=== PATIENT | female | born 1995 | race Caucasian/White ===

== ENCOUNTER 2016-09-20 12:10 | Emergency (ER) | payer MEDICAID, OTHER ==
[~2016-09-20] VITALS: Ht 160 cm; Wt 80.0 kg
[~2016-09-20 12:10] MED LIST: BUSP5 PO; QUET100 PO; SERT50 PO; VIST50CA PO
[2016-09-20 12:13] VITALS: BP 122/70; PULSE 80; RESP 16; TEMP 98; O2SAT 95
--- NOTE | 2016-09-20 12:34 | PD ---
HPI Chief Complaint: Cold / Flu Symptoms Time Seen by Provider: 12:30 Travel History International Travel<30 days: No Contact w/Intl Traveler<30days: No Traveled to known affect area: No History of Present Illness HPI Patient comes in complaining of cold like symptoms ongoing for approximately 6 weeks. Patient states they seem to get a little bit better and the weather changes causing them to get worse again. Patient complaining of sinus congestion, cough, and sore throat. Patient tried [id number] DayQuil and NyQuil full relief of her symptoms. Patient denies any fevers, nausea, vomiting , diarrhea, abdominal pain, shortness of breath, or . PFSH Past Medical History ADHD: No Anxiety: Yes Depression: Yes Developmental Delay: No Diabetes: No (See EMR) Diminished Hearing: No Endocrine: No Genitourinary: No Headaches: Yes (per patient she stated she has frequent headaches) Immune Disorder: No Musculoskeletal: No Neurologic: No Psychiatric: Yes (See EMR) Reproductive: No Respiratory: No Immunizations Current: Yes Migraines: Yes Thyroid Disease: No Ulcer: No ?: Unknown Menopausal: No : 2 Para: 2 Tubal Ligation: No Past Surgical History Appendectomy: No Cholecystectomy: No Hysterectomy: No Other Surgery: No Social History Alcohol Use: No Tobacco Use: Yes Substance Use: Yes (marijuana (occasional)) Allergies-Medications (Allergen,Severity, Reaction): Coded Allergies: No Known Allergies (Verified , 09/20/16) Reported Meds & Prescriptions Reported Meds & Active Scripts Active Flonase Allergy Relief Nasal Laura (Fluticasone Nasal Laura) 50 Mcg/Act Laura 2 Laura EACH NARE DAILY Review of Systems Except as stated in HPI: all other systems reviewed are Neg Physical Exam Narrative GENERAL: Well-developed, overly nourished, in no acute distress, and non-ill appearing. SKIN: Warm and dry. HEAD: Atraumatic. Normocephalic. EYES: Pupils equal and round. EOMI. No scleral icterus. No injection or drainage. ENT: No nasal bleeding or discharge. Mucous membranes pink and moist. Tympanic membranes pearly smith bilaterally. Posterior pharynx nonerythematous without exudate. Uvula is midline. Patient reports minimal tenderness to bilateral maxillary sinuses. NECK: Trachea midline. No cervical lymphadenopathy. Supple. No nuclear rigidity. CARDIOVASCULAR: Regular rate and rhythm. No murmur appreciated. RESPIRATORY: No accessory muscle use. No respiratory distress. Clear to auscultation. Breath sounds equal bilaterally. Patient speaking in full sentences. No coughing on exam. MUSCULOSKELETAL: No obvious deformities. No clubbing. No cyanosis. No edema. Full range of motion. NEUROLOGICAL: Awake and alert. No obvious cranial nerve deficits. Motor grossly within normal limits. Normal speech. PSYCHIATRIC: Appropriate mood and affect; insight and judgment normal. Data Data Last Documented VS Vital Signs Date Time Temp Pulse Resp B/P Pulse Ox O2 Delivery O2 Flow Rate FiO2 09/20/16 12:45 Room Air 09/20/16 12:13 98.0 80 16 122/70 95 MDM Medical Decision Making Medical Screen Exam Complete: Yes Emergency Medical Condition: Yes Differential Diagnosis Upper respiratory infection, pneumonia, bronchitis, sinusitis, other Narrative Course Patient looks great, non-ill appearing. The patient is tolerating fluids and is well hydrated. Appears allergic sinusitis. No clinical evidence by history or evaluation to suspect infection, meningitis and/or sepsis. There was no evidence to suggest deep abscess or cavernous sinus involvement. I discussed with the patient, diagnosis, plan of care, medications and to follow up with the patients primary physician. The patient was instructed to return if the worsens in anyway, especially if not tolerating fluids, increased sinus pain or swelling, worsening headache, persistent fever, difficulty swallowing or breathing, or as needed. The patient agreed with plan. Patient in no obvious distress upon re-evaluation. Patient was asked if they wanted to speak to my attending, which the patient did not wish to do at this time. Any questions/concerns in reference to patient diagnosis/condition discussed and clarified prior to patient's discharge. Reinforced sheer importance of close follow up with patient's primary physician or primary care clinic. Instructed patient to return to ED immediately, if symptoms return/ worsen. Pt showed understanding of above instructions. Further instructions and recommendations were detailed in discharge paperwork. Pt ambulated without difficulty out of ED at discharge. Diagnosis Primary Impression: Sinusitis Qualified Code: J32.0 - Maxillary sinusitis, unspecified chronicity Referrals: [facility] Patient Instructions: General Instructions, Sinusitis (ED) Additional Instructions: Follow-up with your primary care physician in 3-5 days for reevaluation. Take all medication as prescribed. Return to the emergency department if symptoms get worse. Med/Other Pt SpecificInfo: Prescription(s) given Scripts Fluticasone Nasal Laura (Flonase Allergy Relief Nasal Laura)50 Mcg/Act Spray2 Laura EACH NARE DAILY #1 BOTTLE Ref 0 Prov:Komal Jones MD 09/20/16 Disposition: 01 DISCHARGE HOME Condition: Stable Mohamud Chawla Sep 20, 2016 12:34
[2016-09-20] MEDS ORDERED: FLUT1SPR5 EACH NARE (12:35)
== END 2016-09-20 13:05 | disposition home or self-care (01) ==
LOC: NEPB 12:10
DX: J32.9 Chronic sinusitis, unspecified (principal); Z72.0 Tobacco use
CPT/HCPCS: 99283

== ENCOUNTER 2016-10-07 15:22 | Emergency (ER) | payer OTHER ==
[~2016-10-07] VITALS: Ht 160 cm; Wt 80.0 kg
[~2016-10-07 15:22] MED LIST changes: -BUSP5 PO; +FLUT1SPR5 EACH NARE; -QUET100 PO; -SERT50 PO; -VIST50CA PO
[2016-10-07 15:24] VITALS: BP 124/92; PULSE 84; RESP 18; TEMP 98.6; O2SAT 97
--- NOTE | 2016-10-07 15:43 | PD ---
HPI Chief Complaint: Psychiatric Symptoms Time Seen by Provider: 15:43 Travel History International Travel<30 days: No Contact w/Intl Traveler<30days: No Traveled to known affect area: No History of Present Illness HPI 21 year-old female history of bipolar disorder and mother states schizoaffective disorder, presents to emergency department voluntarily for psychiatric evaluation. Patient has not been taking her antipsychotics. She states she does not like how they make her feel. Mom states over the last 2 weeks, patient has been having this "seizure-like" activity. She states that she talks her down and she stops doing it. Here in the patient's room, patient is on the floor yelling, blinking her eyes, and flailing her arms. I explained to the mother that this does not look like a real seizure. The patient stops mid demonstration, stares at me right in my face, and says "I'm not fucking faking this. THIS IS REAL." Then goes back to her shaking. She tells me that it feels as though somebody takes over her body PFSH Past Medical History ADHD: No Anxiety: Yes Depression: Yes Developmental Delay: No Diabetes: No (See EMR) Diminished Hearing: No Endocrine: No Genitourinary: No Headaches: Yes Immune Disorder: No Musculoskeletal: No Neurologic: No Psychiatric: Yes (See EMR) Reproductive: No Respiratory: No Immunizations Current: Yes Migraines: Yes Thyroid Disease: No Ulcer: No ?: Unknown Menopausal: No : 2 Para: 2 Tubal Ligation: No Past Surgical History Appendectomy: No Cholecystectomy: No Hysterectomy: No Other Surgery: No Social History Alcohol Use: No Tobacco Use: Yes (1/2 PPD) Substance Use: Yes (marijuana (occasional)) Allergies-Medications (Allergen,Severity, Reaction): Coded Allergies: No Known Allergies (Verified , 10/07/16) Reported Meds & Prescriptions Reported Meds & Active Scripts Active Reported Ibuprofen 600 Mg Tab 600 Mg PO TID Review of Systems Except as stated in HPI: all other systems reviewed are Neg Physical Exam Narrative GENERAL: Well-nourished female patient, in no acute distress SKIN: Warm and dry. HEAD: Atraumatic. Normocephalic. EYES: Pupils equal and round. No scleral icterus. No injection or drainage. ENT: No nasal bleeding or discharge. Mucous membranes pink and moist. NECK: Trachea midline. No JVD. CARDIOVASCULAR: Regular rate and rhythm. No murmur appreciated. RESPIRATORY: No accessory muscle use. Clear to auscultation. Breath sounds equal bilaterally. GASTROINTESTINAL: Abdomen soft, non-tender, nondistended. Hepatic and splenic margins not palpable. MUSCULOSKELETAL: No obvious deformities. No clubbing. No cyanosis. No edema. NEUROLOGICAL: Awake and alert. No obvious cranial nerve deficits. Motor grossly within normal limits. Normal speech. Data Data Last Documented VS Vital Signs Date Time Temp Pulse Resp B/P Pulse Ox O2 Delivery O2 Flow Rate FiO2 10/07/16 19:00 78 18 129/87 99 Room Air 10/07/16 15:24 98.6 Orders Complete Blood Count With Diff (10/07/16 15:43) Basic Metabolic Panel (Bmp) (10/07/16 15:43) Drug Screen, Random Urine (10/07/16 15:43) Ed Urine Pregnancytest Poc (10/07/16 15:43) Alcohol (Ethanol) (10/07/16 15:43) Psych Screen (10/07/16 15:43) Labs Laboratory Tests Test 10/07/16 10/07/16 15:55 17:20 White Blood Count 11.5 TH/MM3 Red Blood Count 4.75 MIL/MM3 Hemoglobin 14.7 GM/DL Hematocrit 43.7 % Mean Corpuscular Volume 92.0 FL Mean Corpuscular Hemoglobin 30.9 PG Mean Corpuscular Hemoglobin 33.5 % Concent Red Cell Distribution Width 13.0 % Platelet Count 330 TH/MM3 Mean Platelet Volume 8.4 FL Neutrophils (%) (Auto) 68.7 % Lymphocytes (%) (Auto) 25.1 % Monocytes (%) (Auto) 5.5 % Eosinophils (%) (Auto) 0.2 % Basophils (%) (Auto) 0.5 % Neutrophils # (Auto) 7.9 TH/MM3 Lymphocytes # (Auto) 2.9 TH/MM3 Monocytes # (Auto) 0.6 TH/MM3 Eosinophils # (Auto) 0.0 TH/MM3 Basophils # (Auto) 0.1 TH/MM3 CBC Comment DIFF FINAL Differential Comment Sodium Level 141 MEQ/L Potassium Level 3.6 MEQ/L Chloride Level 107 MEQ/L Carbon Dioxide Level 23.7 MEQ/L Anion Gap 10 MEQ/L Blood Urea Nitrogen 9 MG/DL Creatinine 0.74 MG/DL Estimat Glomerular Filtration 99 ML/MIN Rate Random Glucose 93 MG/DL Calcium Level 9.2 MG/DL Ethyl Alcohol Level LESS THAN 3 MG/DL Urine Opiates Screen NEG Urine Barbiturates Screen NEG Urine Amphetamines Screen NEG Urine Benzodiazepines Screen NEG Urine Cocaine Screen NEG Urine Cannabinoids Screen POS MDM Medical Decision Making Medical Screen Exam Complete: Yes Emergency Medical Condition: Yes Medical Record Reviewed: Yes Differential Diagnosis Pseudoseizure versus seizure disorder versus electrolyte abnormality versus mood disorder versus conversion disorder Narrative Course 21-year-old female presents to emergency department voluntarily for psychiatric evaluation. Patient appears without distress. She is having pseudoseizure- like behavior that she is able to absolutely control. There has been no tongue biting no loss of bowel or bladder. She stops mid demonstration to yell at me. After she calms down, she is cooperative. I am able to do assessment. She is without distress. Lab work is without acute abnormality. She is medically cleared to undergo psychiatric screening for further evaluation and disposition. Mental health screening discussed with the patient. Psychiatric screen ordered. Diagnosis Primary Impression: Bipolar 1 disorder, manic, moderate Condition: Stable Alea Cintron Oct 07, 2016 15:43
[2016-10-07 16:30] LABS: AUTOMATED NEUTROPHIL # 7.9 TH/MM3 (1.8-7.7); BASOPHIL # 0.1 TH/MM3 (0-0.2); BASOPHIL % 0.5 % (0.0-2.0); EOSINOPHIL % 0.2 % (0.0-4.0); HEMATOCRIT 43.7 % (35.0-46.0); HEMO FLAGS DIFF FINAL; LYMPH % 25.1 % (9.0-44.0); LYMPHOCYTE # 2.9 TH/MM3 (1.0-4.8); MEAN CORPUSCULAR HEMOGLOBIN 30.9 PG (27.0-34.0); MEAN CORPUSCULAR HGB CONC 33.5 % (32.0-36.0); MONO % 5.5 % (0.0-8.0); NEUT % 68.7 % (16.0-70.0); PLATELET COUNT 330 TH/MM3 (150-450); RED BLOOD COUNT 4.75 MIL/MM3 (4.00-5.30); WHITE BLOOD COUNT 11.5 TH/MM3 (4.0-11.0)
[2016-10-07 16:57] LABS: ANION GAP 10 MEQ/L (5-15); BICARBONATE 23.7 MEQ/L (21.0-32.0); BLOOD UREA NITROGEN 9 MG/DL (7-18); CHLORIDE 107 MEQ/L (98-107); GLOMERULAR FILTRATION RATE 99 ML/MIN (>89); POTASSIUM 3.6 MEQ/L (3.5-5.1); SODIUM (NA) 141 MEQ/L (136-145)
[2016-10-07] MEDS ORDERED: IBUP-232 PO (17:20)
[2016-10-07 17:57] LABS: AMPHETAMINE, URINE NEG (NEG); BARBITURATES, URINE NEG (NEG); COCAINE, URINE NEG (NEG)
[2016-10-07 19:00] VITALS: BP 129/87; PULSE 78; RESP 18; O2SAT 99
[2016-10-07] MEDS ORDERED: QUET1TAB8 PO (21:35)
[2016-10-07] MEDS ORDERED: BUSP5TAB PO (21:35)
[2016-10-07] MEDS ORDERED: SERT-132 PO (21:35)
[2016-10-07 22:14] VITALS: BP 155/99; PULSE 95; RESP 18; TEMP 97.4; O2SAT 98
[2016-10-08 02:11] VITALS: BP 112/70; PULSE 88; RESP 18; O2SAT 98
[2016-10-08 06:08] VITALS: BP 106/67; PULSE 104; RESP 18; TEMP 97.6; O2SAT 99
--- NOTE | 2016-10-08 08:43 | MB ---
cc: BRYAN LARSEN MD DATE OF CONSULTATION: 10/08/2016 PHYSICIAN REQUESTING CONSULTATION Emergency Department. REASON FOR CONSULTATION Psychiatric evaluation. HISTORY OF PRESENT ILLNESS Ms. Wilson is a 21-year-old female with a reported history of schizophrenia who presented voluntarily to the emergency department for a psychiatric evaluation. She apparently displayed some shaking spell activity but the ED provider documented that she stopped mid spell to tell the provider that she was not faking the spell and then resumed shaking. Reviewing the electronic medical record, I see that her most recent psychiatric contact within our system was a brief inpatient psychiatric admission under Dr. Escobar. The patient seen and examined. Chart reviewed. Case discussed with nurse in the J pod. There has been no evidence of any suicidal or homicidal behavior in the J pod. On my examination today, the patient is calm and pleasant. She denies any suicidal or homicidal ideation. She does admit that she deals with depression and anger issues. She says "I have a lot of resentment and I don't want to feel this way any more." She endorses some difficulties with sleep and appetite. She denies any audiovisual hallucinations presently and I can elicit no delusional beliefs including but not limited to paranoia, ideas of reference, thought insertion or withdrawal or grandiosity. She wants to live for her to children. The remainder of the psychiatric ROS is negative. The patient is requesting discharge from the psychiatric emergency room as she plans to go immediately to [facility] to pursue outpatient psychiatric services there. PAST PSYCHIATRIC HISTORY The patient reports prior diagnosis of schizophrenia. She says that she follows at [facility] but has not seen them in sometime. Her most recent psychiatric admission was under Dr. Escobar. She reports that she made a suicide attempt by overdose about 8 months ago and also has a history of non suicidal self-injurious behavior, namely cutting but this is not active. FAMILY HISTORY The patient reports an extensive family history of mental illness with numerous diagnoses. Her paternal grandfather completed suicide. Family psychiatric history is otherwise negative. CHEMICAL DEPENDENCY HISTORY The patient reports that she smokes cannabis daily and feels that it helps with her psychiatric symptoms. She denies any other substance use. SOCIAL HISTORY The patient reports that she lives with her mother. She has two children who were staying with their father. She has a tenth grade education and is thinking about trying to apply for disability. She denies any or legal history. Denies any access to guns or firearms. PAST MEDICAL HISTORY The patient denies. REVIEW OF SYSTEMS No reported headache, vision or hearing changes, chest pain, shortness of breath, bladder issues. The patient does complain of some nausea. PHYSICAL EXAMINATION Vital signs: Temperature is 97.6, pulse 104, respirations 18, blood pressure 106/67, pulse oximetry 99% on room air. A physical examination was completed in the emergency room by the ER staff and the patient was medically cleared. On my examination today, the patient appears to be in no acute physical distress. No abnormal motor movements noted. LABS REVIEWED CBC is significant for white blood cell count of 11.5. BMP is unremarkable. Toxicology is positive for cannabinoids and alcohol level was undetectable. MENTAL STATUS EXAMINATION The patient is in hospital gown. She is well-groomed and clearly attending to her basic needs. She is awake and alert and oriented x3. No motoric abnormalities noted. The patient does have a stammer but otherwise speech is within normal limits for rate, tone and volume. Language and fund of knowledge seem average for age. Mood is somewhat depressed but affect remains fairly full and reactive. Thought process linear. No loosening of associations. No evident delusions. Denies audiovisual hallucinations. Denies suicidal or homicidal ideation. Insight and judgment are fair. ASSESSMENT/PLAN 1. Adjustment disorder, unspecified, F43.20. 2. Reported history of schizophrenia, presently stable. This is a 21-year-old female with psychiatric history as detailed above who presented voluntarily for psychiatric evaluation. This morning for me the patient does describe some issues with mood and anger but denies any suicidal or homicidal ideation. She says that she wants to live for her children. She is attending to her basic needs. The patient does not meet Daniel Act criteria after weighing the relevant factors. I have offered her voluntary psychiatric hospitalization for management of her symptoms but she has declined preferring outpatient psychiatric follow up. Given I have no basis to retain the patient involuntarily at this time I will recommend her discharge from the psychiatric emergency room with plans to follow up at [facility] as she has stated. I have counseled the patient regarding warning signs for need to return to the psychiatric emergency room as part of a general safety plan. The patient is otherwise psychiatrically clear for discharge from the ED. Thank you very much for this consultation. Bryan Larsen DC/ALFREDO /8:13 AM /8:27 AM OSVALDO
[2016-10-08 10:07] VITALS: BP 106/67; PULSE 104; RESP 18; O2SAT 99
== END 2016-10-08 12:56 | disposition home or self-care (01) ==
LOC: NEPJ 15:22
DX: F31.9 Bipolar disorder, unspecified (principal); F43.20 Adjustment disorder, unspecified; F20.9 Schizophrenia, unspecified; F17.210 Nicotine dependence, cigarettes, uncomplicated; F12.90 Cannabis use, unspecified, uncomplicated
CPT/HCPCS: 80048; 80307; 80320; 84703; 85025; 99283

== ENCOUNTER 2016-10-22 14:37 | Emergency (ER) | payer SELFPAY ==
[~2016-10-22] VITALS: Ht 160 cm; Wt 81.8 kg
[~2016-10-22 14:37] MED LIST changes: +BUSP5TAB PO; -FLUT1SPR5 EACH NARE; +IBUP-232 PO; +QUET1TAB8 PO; +SERT-132 PO
[2016-10-22 14:40] VITALS: BP 149/76; PULSE 92; RESP 12; TEMP 98.4; O2SAT 98
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
[2016-10-22 16:02] LABS: BACTERIA, URINE MOD /hpf; BLOOD, URINE MOD (NEG); COMMENT (UR) CULTURE INDICATED; CULTURE IF INDICATED CULTURE INDICATED; GLUCOSE,URINE NEG (NEG); KETONE, URINE NEG (NEG); MUCUS URINE MANY /lpf (OCC); NITRITE,URINE NEG (NEG); SQUAMOUS EPITHELIAL CELL URINE 122 /hpf (0-5); URINE COLOR YELLOW (YELLW/STRAW)
[2016-10-22] MEDS ORDERED: BACT800T5 PO (16:15)
[2016-10-22] MEDS ORDERED: DIFL150T PO (16:18)
== END 2016-10-22 16:23 | disposition home or self-care (01) ==
LOC: NEPB 14:37
DX: N39.0 Urinary tract infection, site not specified (principal); B96.20 Unspecified Escherichia coli [E. coli] as the cause of diseases classified elsewhere; M54.5 Low back pain; B37.3 Candidiasis of vulva and vagina; F17.210 Nicotine dependence, cigarettes, uncomplicated
CPT/HCPCS: 81001; 84703; 87077; 87086; 87186; 99284

== ENCOUNTER 2017-12-06 09:28 | Emergency (ER) | payer SELFPAY ==
[~2017-12-06] VITALS: Ht 160 cm; Wt 75.0 kg
[~2017-12-06 09:28] MED LIST changes: +BACT800T5 PO; +BUSP10TA8 PO; +DIFL150T PO; +LEXA5SOL PO
[2017-12-06 10:32] VITALS: BP 114/72; PULSE 72; RESP 18; TEMP 98.3; O2SAT 100
[2017-12-06 10:34] VITALS: BP 114/72; PULSE 72; RESP 18; TEMP 98.3; O2SAT 100
--- NOTE | 2017-12-06 11:44 | PD ---
HPI Chief Complaint: Cold / Flu Symptoms Time Seen by Provider: 11:35 Travel History International Travel<30 days: No Contact w/Intl Traveler<30days: No Traveled to known affect area: No History of Present Illness HPI Patient is a 22-year-old female presents emergency department with cough congestion runny nose for the past 3-4 days. Patient states it felt like a regular cold but she just wanted to make sure she was not getting the flu. She denies any chest pain shortness of breath denies any fevers. States symptoms are mild, for the past 3 days, constant, associated signs symptoms as above PFSH Past Medical History ADHD: No Anxiety: Yes Depression: Yes Developmental Delay: No Diabetes: No (See EMR) Diminished Hearing: No Endocrine: No Genitourinary: No Headaches: Yes Immune Disorder: No Musculoskeletal: No Neurologic: No Psychiatric: Yes Reproductive: No Respiratory: No Immunizations Current: Yes Migraines: Yes Thyroid Disease: No Ulcer: No Tetanus Vaccination: < 5 Years ?: Unknown LMP: 1 WEEK AGO Menopausal: No : 2 Para: 2 Tubal Ligation: No Past Surgical History Appendectomy: No Cholecystectomy: No Hysterectomy: No Other Surgery: No Social History Alcohol Use: No Tobacco Use: Yes (1/2 PPD) Substance Use: Yes Allergies-Medications (Allergen,Severity, Reaction): Coded Allergies: *MDRO Multi-Drug Resistant Organism (Verified Adverse Reaction, Unknown, ) ESBL E. coli (urine) - 10/22/16 No Known Allergies (Verified Adverse Reaction, Unknown, 12/06/17) Reported Meds & Prescriptions Reported Meds & Active Scripts Active No Active Prescriptions or Reported Medications Review of Systems Except as stated in HPI: all other systems reviewed are Neg Physical Exam Narrative GENERAL: Well-nourished, well-developed patient. Appears quite well and in no obvious distress. SKIN: Focused skin assessment warm/dry. No rash no wound HEAD: Normocephalic. EYES: No scleral icterus. No injection or drainage. ENT: TMs clear bilaterally, oropharynx clear moist. NECK: Supple, trachea midline. No JVD or lymphadenopathy. CARDIOVASCULAR: Regular rate and rhythm without murmurs, gallops, or rubs. RESPIRATORY: Breath sounds equal bilaterally. No accessory muscle use. GASTROINTESTINAL: Abdomen soft, non-tender, nondistended. MUSCULOSKELETAL: No cyanosis, or edema. BACK: Nontender without obvious deformity. No CVA tenderness. Data Data Last Documented VS Vital Signs Date Time Temp Pulse Resp B/P (MAP) Pulse Ox O2 Delivery O2 Flow Rate FiO2 12/06/17 12:00 12/06/17 10:34 98.3 72 18 100 Room Air Orders Orders Ed Discharge Order (12/06/17 11:44) MDM Medical Decision Making Medical Screen Exam Complete: Yes Emergency Medical Condition: Yes Differential Diagnosis URI, pneumonia unlikely, influenza, laryngitis, strep throat is excluded by [facility] criteria Narrative Course Patient room to the emergency department, appears well in obvious distress, otherwise healthy, is no indication for Tamiflu/out of the window and therefore no indication for testing. Discussed with her symptomatic management return to ED criteria and follow-up with primary care physician. She is stable for discharge. Diagnosis Primary Impression: Upper respiratory infection Departure Forms: Tests/Procedures, Work Release Enter return to work date: Dec 08, 2017 Scripts No Active Prescriptions or Reported Meds Disposition: 01 DISCHARGE HOME Condition: Stable Scott Lion MD Dec 06, 2017 11:44
== END 2017-12-06 12:05 | disposition home or self-care (01) ==
LOC: NEPK 09:28 → NEPD 12:05
DX: J06.9 Acute upper respiratory infection, unspecified (principal); F17.200 Nicotine dependence, unspecified, uncomplicated
CPT/HCPCS: 99282